=== PATIENT | female | born 1970 | race Caucasian/White ===

== ENCOUNTER → 2017-09-28 | Outpatient (CLI) | payer BC ==
[2015-06-15 11:01] VITALS: BP 95/69
--- NOTE | 2017-09-30 12:32 | MG ---
HISTORY: SCREENING Comparison: 09/27/2016 FINDINGS: CC and MLO projections of the right and left breast were obtained. Scattered fibroglandular tissue i s present. No significant architectural distortion, mass or clustered microcalcifications can be obs erved to suggest malignancy. No skin thickening or nipple retraction is appreciated. No pathologic al lymphadenopathy can be identified. IMPRESSION: NO RADIOGRAPHIC EVIDENCE OF MALIGNANCY. ACR CATEGORY I - NEGATIVE EXAM. FOLLOW-UP EXAM 1 YEAR. Diagnostic CAD was utilized and reviewed. * 0 (ZERO) - ASSESSMENT INCOMPLETE; ADDITIONAL IMAGING IS NEEDED. * 1/ (ONE) - NEGATIVE. * 2/II (TWO) - BENIGN FINDINGS. * 3/III (THREE) - PROBABLY BENIGN FINDING; SHORT INTERVAL FOLLOW-UP SUGGESTED. * 4/IV (FOUR) - SUSPICIOUS ABNORMALITY; BIOPSY SHOULD BE CONSIDERED. * 5/V - HIGHLY SUSPICIOUS OF MALIGNANCY; BIOPSY SHOULD BE PERFORMED. A NEGATIVE X-RAY REPORT SHOULD NOT DELAY BIOPSY IF A DOMINANT OR CLINICALLY SUSPICIOUS MASS IS PRESENT; 4 TO 8 PERCENT OF CANCERS ARE NOT IDENTIFIED BY X-RAY. A NEGA TIVE REPORT MAY REINFORCE THE CLINICAL IMPRESSION. ADENOSIS AND DENSE BREASTS MAY OBSCURE AN UNDERLY ING NEOPLASM. Reported By:
== END ==
LOC: RAD 15:08
PROVIDERS: ATTEND Internal Medicine
DX: Z12.31 Encounter for screening mammogram for malignant neoplasm of breast (principal)
CPT/HCPCS: 77067

== ENCOUNTER 2018-09-13 11:09 | Inpatient (IN) ==
[2018-09-13] MEDS ORDERED: TUSSIONEX PENNKINETIC SUSP PO PRN (12:02)
[2018-09-13] MEDS ORDERED: NS 1/2 1000 ML IV 1,000 ML IV ONE ×2 (12:27→23:42)
[2018-09-13 12:30] LABS: BASOPHILS # (AUTO) 0.2 X10^3/uL (0.0-0.1); BASOPHILS % (AUTO) 2.6 % (0.2-1.0); EOSINOPHILS # (AUTO) 0.2 x10^3/uL (0.0-0.2); EOSINOPHILS % (AUTO) 2.1 % (0.9-2.9); HEMATOCRIT 43.8 % (36.0-47.0); HEMOGLOBIN 14.9 g/dL (12.0-16.0); LYMPHOCYTES # (AUTO) 2.9 X10^3/uL (1.3-2.9); LYMPHOCYTES % (AUTO) 34.3 % (21.0-51.0); MEAN CORPUSCULAR HEMOGLOBIN 28.5 pg (27.0-34.0); MEAN CORPUSCULAR VOLUME 83.9 fL (80.0-100.0); MEAN PLATELET VOLUME 8.4 fL (7.4-11.0); NEUTROPHILS # (AUTO) 4.2 x10^3/uL (2.2-4.8); PLATELET COUNT 379 X10^3/uL (150.0-450.0); RED BLOOD COUNT 5.23 X10^6/uL (3.5-5.4); RED CELL DISTRIBUTION WIDTH 13.6 % (11.6-16.5); WHITE BLOOD COUNT 8.5 X10^3/uL (3.6-10.0)
[2018-09-13] MEDS: DUONEB 0.5 MG/3 MG NEB SCH ×3 (12:30→21:00)
[2018-09-13] MEDS: NS 1/2 1000 ML IV 1,000 ML IV SCH (12:31)
[2018-09-13 12:44] LABS: ALANINE AMINOTRANSFERASE 26 Units/L (12-78); ALBUMIN 3.7 g/dL (3.4-5.0); ALKALINE PHOSPHATASE 87 Units/L (46-116); ASPARTATE AMINO TRANSFERASE 13 Units/L (15-37); BLOOD UREA NITROGEN 9 mg/dL (7-18); CALCIUM 8.1 mg/dL (8.5-10.1); CARBON DIOXIDE 23.4 mmol/L (21-32); CHLORIDE 105 mmol/L (98-107); CREATININE 0.95 mg/dL (0.55-1.02); SODIUM 140 mmol/L (136-145); TOTAL PROTEIN 7.7 g/dL (6.4-8.2); eGFR NON BLACK RACES > 60 (>60)
[2018-09-13] MEDS: LEVAQUIN PREMIX IV 750 MG 750 MG/150 ML BAG IV SCH (13:05)
[2018-09-13] MEDS: FORTAZ or TAZICEF VIAL INJ IVP SCH ×3 (13:05→21:04)
[2018-09-13] MEDS: ROBITUSSIN DM PO SCH ×3 (13:05→21:04)
[2018-09-13] MEDS ORDERED: SALINE 3% 15 ML NEB TX NEB ONE (13:11)
--- NOTE | 2018-09-13 13:20 | RAD ---
STUDY: CHEST, TWO VIEWS History: Pneumonia. Cough. Shortness of breath. Comparison: December 02, 2014. Findings: The trachea is midline. There is some prominence of the central bronchopulmonary markings in both lungs. There is no evidence of consolidation, significant infiltrate, effusion, or pneumothorax. The cardiac silhouette, mediastinum and osseous structures are unremarkable. IMPRESSION: 1. Bronchitis versus reactive airway disease. Reported By:
[2018-09-13 14:39] VITALS: BMI 30.5
[2018-09-13] MEDS ORDERED: FLUVIRIN IM ONE ×2 (14:40→17:12)
[2018-09-13] MEDS ORDERED: POTASSIUM CHL 40 MEQ/NS 0.45% 500 ML IV PRN (16:54)
[2018-09-13] MEDS ORDERED: KLOR-CON PO PRN (16:54)
[2018-09-13] MEDS ORDERED: K-RIDER 10 MEQ/NS 100 ML 10 MEQ/100 ML BAG IV PRN (16:54)
[2018-09-13] MEDS ORDERED: POTASSIUM CHLORIDE LIQ 20 MEQ UDC PO PRN (16:54)
[2018-09-13] MEDS ORDERED: MICRO K EXTEN CAP 10 MEQ PO PRN (16:54)
[2018-09-13] MEDS ORDERED: POTASSIUM CHL 60 MEQ/NS 0.45% 500 ML IV PRN (16:54)
[2018-09-13] MEDS ORDERED: K-DUR TAB 20 MEQ PO ONE (17:11)
[2018-09-13] MEDS: K-DUR TAB 20 MEQ PO PRN (17:20)
[2018-09-14] MEDS: NS 1/2 1000 ML IV 1,000 ML IV SCH ×2 (01:10→17:03)
[2018-09-14] MEDS: FORTAZ or TAZICEF VIAL INJ IVP SCH ×3 (05:14→22:00)
[2018-09-14 05:17] LABS: BASOPHILS # (AUTO) 0.2 X10^3/uL (0.0-0.1); BASOPHILS % (AUTO) 2.6 % (0.2-1.0); EOSINOPHILS # (AUTO) 0.5 x10^3/uL (0.0-0.2); EOSINOPHILS % (AUTO) 6.1 % (0.9-2.9); HEMATOCRIT 39.7 % (36.0-47.0); HEMOGLOBIN 13.2 g/dL (12.0-16.0); LYMPHOCYTES # (AUTO) 2.8 X10^3/uL (1.3-2.9); LYMPHOCYTES % (AUTO) 36.6 % (21.0-51.0); MEAN CORPUSCULAR HEMOGLOBIN 28.2 pg (27.0-34.0); MEAN CORPUSCULAR HGB CONC 33.3 g/dL (33.0-35.0); MEAN CORPUSCULAR VOLUME 84.7 fL (80.0-100.0); MEAN PLATELET VOLUME 8.9 fL (7.4-11.0); MONOCYTES # (AUTO) 0.9 x10^3/uL (0.3-0.8); MONOCYTES % (AUTO) 11.2 % (0.0-13.0); NEUTROPHILS # (AUTO) 3.4 x10^3/uL (2.2-4.8); NEUTROPHILS % (AUTO) 43.5 % (42.0-75.0); PLATELET COUNT 328 X10^3/uL (150.0-450.0); RED BLOOD COUNT 4.69 X10^6/uL (3.5-5.4); RED CELL DISTRIBUTION WIDTH 13.9 % (11.6-16.5); WHITE BLOOD COUNT 7.7 X10^3/uL (3.6-10.0)
[2018-09-14 05:20] LABS: ALANINE AMINOTRANSFERASE 21 Units/L (12-78); ALBUMIN 2.8 g/dL (3.4-5.0); ALKALINE PHOSPHATASE 71 Units/L (46-116); ASPARTATE AMINO TRANSFERASE 10 Units/L (15-37); BLOOD UREA NITROGEN 11 mg/dL (7-18); CALCIUM 7.7 mg/dL (8.5-10.1); CARBON DIOXIDE 24.2 mmol/L (21-32); CHLORIDE 107 mmol/L (98-107); COR CA(FOR HYPOALB) 8.7 mg/dL (8.5-10.1); CREATININE 0.98 mg/dL (0.55-1.02); SODIUM 140 mmol/L (136-145); TOTAL PROTEIN 6.2 g/dL (6.4-8.2); eGFR NON BLACK RACES > 60 (>60)
--- NOTE | 2018-09-14 08:33 | RAD ---
HISTORY: Cough and shortness of breath Study: Single-view chest Comparison: 09/13/2018 Findings: The trachea is midline. The cardiac silhouette is unremarkable. The lungs are clear without focal infiltrate or effusion. The bony thorax is unremarkable. IMPRESSION: 1. No acute cardiopulmonary disease. Reported By:
[2018-09-14] MEDS: ROBITUSSIN DM PO SCH ×4 (08:34→20:23)
[2018-09-14] MEDS: LEVAQUIN PREMIX IV 750 MG 750 MG/150 ML BAG IV SCH (08:34)
[2018-09-14] MEDS: DUONEB 0.5 MG/3 MG NEB SCH ×4 (09:13→20:48)
[2018-09-14] MEDS ORDERED: NS 1/2 1000 ML IV 1,000 ML IV ONE (17:00)
[2018-09-15 05:28] LABS: BASOPHILS # (AUTO) 0.2 X10^3/uL (0.0-0.1); BASOPHILS % (AUTO) 2.1 % (0.2-1.0); EOSINOPHILS # (AUTO) 0.6 x10^3/uL (0.0-0.2); EOSINOPHILS % (AUTO) 7.2 % (0.9-2.9); HEMATOCRIT 37.1 % (36.0-47.0); HEMOGLOBIN 12.5 g/dL (12.0-16.0); LYMPHOCYTES # (AUTO) 2.5 X10^3/uL (1.3-2.9); LYMPHOCYTES % (AUTO) 30.2 % (21.0-51.0); MEAN CORPUSCULAR HEMOGLOBIN 28.4 pg (27.0-34.0); MEAN CORPUSCULAR HGB CONC 33.6 g/dL (33.0-35.0); MEAN CORPUSCULAR VOLUME 84.5 fL (80.0-100.0); MEAN PLATELET VOLUME 8.6 fL (7.4-11.0); MONOCYTES # (AUTO) 1.1 x10^3/uL (0.3-0.8); MONOCYTES % (AUTO) 13.7 % (0.0-13.0); NEUTROPHILS # (AUTO) 3.9 x10^3/uL (2.2-4.8); NEUTROPHILS % (AUTO) 46.8 % (42.0-75.0); PLATELET COUNT 291 X10^3/uL (150.0-450.0); RED CELL DISTRIBUTION WIDTH 13.8 % (11.6-16.5); WHITE BLOOD COUNT 8.3 X10^3/uL (3.6-10.0)
[2018-09-15] MEDS ORDERED: NS 1/2 1000 ML IV 1,000 ML IV ONE ×2 (05:29→20:33)
[2018-09-15 05:36] LABS: ALANINE AMINOTRANSFERASE 20 Units/L (12-78); ALBUMIN 2.6 g/dL (3.4-5.0); ALKALINE PHOSPHATASE 69 Units/L (46-116); ASPARTATE AMINO TRANSFERASE 11 Units/L (15-37); BLOOD UREA NITROGEN 11 mg/dL (7-18); CALCIUM 7.5 mg/dL (8.5-10.1); CARBON DIOXIDE 22.9 mmol/L (21-32); CHLORIDE 108 mmol/L (98-107); COR CA(FOR HYPOALB) 8.6 mg/dL (8.5-10.1); CREATININE 0.94 mg/dL (0.55-1.02); SODIUM 140 mmol/L (136-145); TOTAL PROTEIN 5.9 g/dL (6.4-8.2); eGFR NON BLACK RACES > 60 (>60)
[2018-09-15] MEDS: FORTAZ or TAZICEF VIAL INJ IVP SCH ×3 (06:12→21:25)
[2018-09-15] MEDS: NS 1/2 1000 ML IV 1,000 ML IV SCH ×2 (06:12→21:00)
--- NOTE | 2018-09-15 07:20 | RAD ---
HISTORY: Pneumonia, cough and shortness of breath Study: Single-view chest Comparison: 09/14/2018 Findings: The trachea is midline. The cardiac silhouette is unremarkable. The lungs are clear without focal infiltrate or effusion. The bony thorax is unremarkable. IMPRESSION: 1. No acute cardiopulmonary disease. Reported By:
[2018-09-15] MEDS: DUONEB 0.5 MG/3 MG NEB SCH ×4 (09:15→21:30)
[2018-09-15] MEDS ORDERED: MOTRIN TAB 800 MG PO ONE (10:15)
[2018-09-15] MEDS: ROBITUSSIN DM PO SCH ×4 (10:39→20:15)
[2018-09-15] MEDS: LEVAQUIN PREMIX IV 750 MG 750 MG/150 ML BAG IV SCH (10:39)
[2018-09-15] MEDS: SOLU-Medrol 40 MG VIAL IVP SCH ×3 (13:56→21:25)
--- NOTE | 2018-09-15 14:31 | CT ---
HISTORY: Bronchitis Study: CT chest without contrast Comparison: None Technique: Multiple axial images of the chest were obtained from the thoracic inlet to the upper abdomen without the administration of IV contrast. CT chest without contrast Findings: There are no consolidating pulmonary infiltrates. The pleural spaces are clear. Mild paraseptal and centrilobular apical emphysematous changes are noted. There are no lung masses or suspicious lung nodules identified. A few scattered noncalcified pulmonary nodules and ground-glass opacities are seen within the right and left lung. For example, in the left lower lobe, a pulmonary nodule measures 4.5 mm. In the right lower lobe, a nodule approximating the pleural surface measures approximately 6 mm. In the right upper lobe, a nodule measures 5 mm and 3 mm respectively. Other scattered 1-4 mm pulmonary nodules are seen within the left upper lobe, right upper lobe, and left lower lobe. There are no pathologically enlarged mediastinal, hilar, or axillary lymph nodes. There is no evidence of a pericardial or pleural effusion. Thoracic aorta caliber is normal. The imaged portions of the abdomen demonstrate no emergent findings. Review of bone windows demonstrates no aggressive bony lesions or acute osseous abnormalities. IMPRESSION: Mild biapical emphysematous change. No infiltrates identified Scattered sub cm pulmonary nodules of the right and left lung, the largest measuring up to 6 mm. Follow-up exam recommended within 6 months to confirm stability Reported By:
[2018-09-15] MEDS: K-DUR TAB 20 MEQ PO PRN (20:15)
[2018-09-15] MEDS: TYLENOL 325 MG TAB PO PRN (20:16)
[2018-09-16 05:25] LABS: BASOPHILS % (AUTO) 0.3 % (0.2-1.0); HEMOGLOBIN 13.2 g/dL (12.0-16.0); LYMPHOCYTES # (AUTO) 0.4 X10^3/uL (1.3-2.9); MEAN CORPUSCULAR VOLUME 84.7 fL (80.0-100.0); MEAN PLATELET VOLUME 8.8 fL (7.4-11.0); MONOCYTES # (AUTO) 0.2 x10^3/uL (0.3-0.8); MONOCYTES % (AUTO) 1.3 % (0.0-13.0); NEUTROPHILS % (AUTO) 95.4 % (42.0-75.0); PLATELET COUNT 308 X10^3/uL (150.0-450.0); RED BLOOD COUNT 4.73 X10^6/uL (3.5-5.4); RED CELL DISTRIBUTION WIDTH 14.2 % (11.6-16.5); WHITE BLOOD COUNT 14.7 X10^3/uL (3.6-10.0)
[2018-09-16] MEDS ORDERED: NS 100 ML IV 100 ML IV ONE (05:27)
[2018-09-16 05:30] LABS: BLOOD UREA NITROGEN 11 mg/dL (7-18); CHLORIDE 108 mmol/L (98-107); COR NA(FOR HYPERGLY) 140 mmol/L (136-145); CREATININE 0.87 mg/dL (0.55-1.02); SODIUM 139 mmol/L (136-145); eGFR NON BLACK RACES > 60 (>60)
[2018-09-16 06:18] LABS: BAND NEUTROPHILS % 3 % (0-10)
[2018-09-16 06:19] LABS: PLATELET MORPHOLOGY COMMENT NORMAL (NORMAL)
--- NOTE | 2018-09-16 06:32 | CT ---
CT CHEST WITH IV CONTRAST CLINICAL HISTORY: 48-year-old female with bronchopneumonia. COMPARISON: CT chest without 09/15/2018. TECHNIQUE: Chest CT was performed utilizing contiguous axial images from the thoracic inlet to below the diaphragm following the administration of 75 mL Omnipaque 350 IV contrast. The images were reformatted in the coronal and sagittal planes. FINDINGS: The thyroid and base of the neck are within normal limits. There is no thoracic lymphadenopathy. The heart is normal in size and there is no pericardial effusion. Bibasilar subsegmental dependent atelectasis without consolidation, effusion, pneumothorax or mass. Scattered subcentimeter ground-glass nodules unchanged. Subtle biapical emphysema. The trachea and mainstem bronchi are patent. Imaged upper abdomen is unremarkable. The arteriovascular structures are intact without dissection, aneurysm, or occlusion. There is no central pulmonary embolus. Soft tissues are normal. The osseous structures are intact without fracture or malalignment. IMPRESSION: 1. No abnormal intra thoracic enhancement. 2. Subsegmental bibasilar dependent atelectasis with subtle apical emphysematous change. 3. No acute intrathoracic process. Reported By:
[2018-09-16] MEDS: DUONEB 0.5 MG/3 MG NEB SCH ×3 (07:31→12:17)
[2018-09-16] MEDS: ROBITUSSIN DM PO SCH ×3 (09:00→13:33)
[2018-09-16] MEDS: LEVAQUIN PREMIX IV 750 MG 750 MG/150 ML BAG IV SCH (09:00)
[2018-09-16] MEDS: FORTAZ or TAZICEF VIAL INJ IVP SCH (09:02)
[2018-09-16] MEDS ORDERED: NS 1/2 1000 ML IV 1,000 ML IV ONE (11:48)
[2018-09-16] MEDS: NS 1/2 1000 ML IV 1,000 ML IV SCH (11:49)
[2018-09-16] MEDS: TYLENOL 325 MG TAB PO PRN (11:50)
[2018-09-16 12:17] VITALS: BP 106/58
--- NOTE | 2018-10-04 08:33 | DR.UPDATE ---
H&P Update History and Physical Update: WAS SEEN IN THE OFFICE TODAY. A H&P WAS COMPLETED PRIOR TO ADMISSION. PATIENT HAS BEEN SEEN AND EXAMINED WITH NO CHANGES NOTED TO H&P. Changes noted: NO Yes with the following:
== END 2018-09-16 13:30 | disposition home or self-care (01) | DRG 194 ==
LOC: MED/SURG 11:43
PROVIDERS: ADMIT Internal Medicine; ATTEND Internal Medicine
DX: J20.8 Acute bronchitis due to other specified organisms; J44.1 Chronic obstructive pulmonary disease with (acute) exacerbation; R06.02 Shortness of breath; R06.03 Acute respiratory distress; R05 Cough; J18.0 Bronchopneumonia, unspecified organism; M06.9 Rheumatoid arthritis, unspecified; Z23 Encounter for immunization
CPT/HCPCS: 36415; 71010; 71020; 71045; 71046; 71250; 71260; 80048; 80053; 83735; 85025; 87040; 87070; 87205; 90686; 94640; 94760; 99231; 99238; A4222; J0713; J1956; J2920; J3490; J7050; J7620